=== PATIENT | female | born 1985 | race Caucasian/White ===

== ENCOUNTER 2017-11-22 15:04 | Emergency (ER) | payer OTHER ==
[~2017-11-22] VITALS: Ht 157.4 cm; Wt 81.6 kg
[~2017-11-22 15:04] MED LIST changes: -AMITRIPTYLINE50 MG PO; -BACLOFEN5 MG PO; -COZAAR100 MG PO; -DAYPRO600 M1 PO; -MIRALAX POWDER17 G1 PO; -NORCO 5-325 TA1 EACH PO; -PHENERGAN25 M3 PO; -PROBIOTIC1 EAC4 PO; -Percocet 325 MG1 TAB PO; -STOOL SOFTENER100 M3 PO; -VESICARE10 MG PO
[2017-11-22 15:09] VITALS: BP 145/85
[2017-11-22 15:57] LABS: BASO # 0.1 10*3/uL (0.0-0.1); EOS # 0.2 10*3/uL (0.0-0.4); EOS % 1.9 % (1.0-4.0); HEMATOCRIT 37.3 % (37.0-47.0); HEMOGLOBIN 12.5 g/dl (12.0-16.0); LYMPH # 2.5 10*3/uL (1.3-4.4); LYMPH % 27.7 % (27.0-41.0); MEAN CELL VOLUME 90.3 fl (81.0-99.0); MEAN CORPUSCULAR HGB 30.3 pg (27.0-31.0); MEAN CORPUSCULAR HGB CONC 33.5 g/dl (33.0-37.0); MEAN PLATELET VOLUME 9.9 fl (9.6-12.3); MONO # 0.9 10*3/uL (0.1-1.0); NEUT # 5.4 10*3/uL (2.3-7.9); PLATELET COUNT AUTOMATED 389 10*3/uL (130-400); RED BLOOD COUNT 4.13 10*6/uL (4.10-5.10); RED CELL DISTRI WIDTH 12.4 % (0-14.5); WHITE BLOOD COUNT 9.1 10*3/uL (4.8-10.8)
[2017-11-22 16:04] LABS: CLARITY CLEAR (CLEAR); COLOR YELLOW (YELLOW)
[2017-11-22 16:05] LABS: BILIRUBIN NEGATIVE (NEGATIVE); BLOOD NEGATIVE (NEGATIVE); GLUCOSE NEGATIVE (NEGATIVE); KETONE NEGATIVE (NEGATIVE); LEUKO ESTERASE NEGATIVE (NEGATIVE); NITRITE NEGATIVE (NEGATIVE); SPECIFIC GRAVITY 1.005 (1.005-1.030); UROBILINOGEN 0.2 E.U./dl (0.2-1.0)
[2017-11-22 16:13] LABS: BACTERIA TRACE; RBC 0-2 rbc/hpf (0-2); WBC 0-2 wbc/hpf (0-5)
[2017-11-22 16:16] LABS: ALBUMIN 4.3 gm/dl (3.1-4.5); ALKALINE PHOSPHATASE 39 U/L (45-117); BUN 9 mg/dl (7-24); CHLORIDE 105 mmol/L (98-107); CREATININE 0.86 mg/dL (0.55-1.02); POTASSIUM 3.5 mmol/L (3.5-5.1); SGOT/AST 19 IU/L (3-35); SGPT/ALT 31 U/L (12-78); SODIUM 139 mmol/L (136-145); TOTAL PROTEIN 7.3 gm/dL (6.4-8.2)
[2017-11-22] MEDS ORDERED: PHENERGAN25 M3 PO (18:04)
[2017-11-22] MEDS ORDERED: Percocet 325 MG1 TAB PO (18:04)
[2017-11-22] MEDS ORDERED: MIRALAX POWDER17 G1 PO (18:05)
[2017-12-10] MEDS ORDERED: BACLOFEN5 MG PO (08:57)
[2017-12-10] MEDS ORDERED: VESICARE10 MG PO (08:58)
[2017-12-10] MEDS ORDERED: DAYPRO600 M1 PO (08:58)
[2017-12-10] MEDS ORDERED: COZAAR100 MG PO (08:58)
[2017-12-10] MEDS ORDERED: AMITRIPTYLINE50 MG PO (08:59)
[2017-12-10] MEDS ORDERED: STOOL SOFTENER100 M3 PO (08:59)
[2017-12-10] MEDS ORDERED: PROBIOTIC1 EAC4 PO (08:59)
[2017-12-12] MEDS ORDERED: NORCO 5-325 TA1 EACH PO (11:46)
== END 2017-11-22 18:19 | disposition home or self-care (01) ==
LOC: ED 15:04
PROVIDERS: Physician Assistant
DX: K59.00 Constipation, unspecified (principal); R10.31 Right lower quadrant pain; F17.200 Nicotine dependence, unspecified, uncomplicated; Z98.890 Other specified postprocedural states; Z79.899 Other long term (current) drug therapy; Z88.1 Allergy status to other antibiotic agents; Z88.5 Allergy status to narcotic agent; Z90.710 Acquired absence of both cervix and uterus

== ENCOUNTER → 2017-11-22 | Outpatient (CLI) | payer OTHER ==
[~2017-11-22] MED LIST: ALLERGY RELIEF10 M1 PO; AMITRIPTYLINE50 MG PO; BACLOFEN5 MG PO; BALZIVA 35 MCG-1 TAB PO; CEFTIN500 MG PO; CLARITIN10 MG PO; COMPAZINE10 MG PO; COZAAR100 MG PO; DAYPRO600 M1 PO; ELMIRON100 MG PO; MIRALAX POWDER17 G1 PO; MOBIC7.5 MG PO; MOTRIN800 MG PO; MULTIPLE VITAMI1 TAB PO; NORCO 5-325 TA1 EACH PO; PHENERGAN25 M3 PO; PHENERGAN25 MG RC; PRILOSEC40 MG PO; PROBIOTIC1 EAC4 PO; Percocet 325 MG1 TAB PO; STOOL SOFTENER100 M3 PO; VESICARE10 MG PO; VICO75300 PO; VICODIN 500 MG-1 TAB PO; VITAMIN B121000 MCG PO; ZANTAC150 MG PO; ZITHROMAX Z PA250 MG PO
== END | disposition home or self-care (01) ==
LOC: US 10:38
DX: N83.9 Noninflammatory disorder of ovary, fallopian tube and broad ligament, unspecified (principal); Z90.710 Acquired absence of both cervix and uterus

== ENCOUNTER → 2017-12-12 | Day surgery (SDC) | payer OTHER ==
[2017-12-10 09:14] VITALS: BP 140/90
[~2017-12-12] VITALS: Ht 157.4 cm; Wt 77.1 kg
[~2017-12-12] MED LIST changes: +AMITRIPTYLINE50 MG PO; +BACLOFEN5 MG PO; +COZAAR100 MG PO; +DAYPRO600 M1 PO; +MIRALAX POWDER17 G1 PO; +NORCO 5-325 TA1 EACH PO; +PHENERGAN25 M3 PO; +PROBIOTIC1 EAC4 PO; +Percocet 325 MG1 TAB PO; +STOOL SOFTENER100 M3 PO; +VESICARE10 MG PO
[2017-12-12 08:30] VITALS: BP 130/93
[2017-12-12 11:15] VITALS: BP 118/48
[2017-12-12 11:30] VITALS: BP 114/59
[2017-12-12 11:45] VITALS: BP 116/58
[2017-12-12 12:00] VITALS: BP 116/58
[2017-12-12 12:15] VITALS: BP 112/66
== END | disposition home or self-care (01) ==
LOC: SDC 12-07 10:15
DX: D27.0 Benign neoplasm of right ovary (principal); N83.511 Torsion of right ovary and ovarian pedicle; I10 Essential (primary) hypertension; K21.9 Gastro-esophageal reflux disease without esophagitis; J45.909 Unspecified asthma, uncomplicated; K92.89 Other specified diseases of the digestive system; F17.210 Nicotine dependence, cigarettes, uncomplicated; F32.9 Major depressive disorder, single episode, unspecified; E66.09 Other obesity due to excess calories; Z98.890 Other specified postprocedural states; Z90.721 Acquired absence of ovaries, unilateral; Z90.49 Acquired absence of other specified parts of digestive tract; Z98.51 Tubal ligation status; Z88.8 Allergy status to other drugs, medicaments and biological substances; Z79.899 Other long term (current) drug therapy; Z83.3 Family history of diabetes mellitus; Z68.31 Body mass index [BMI] 31.0-31.9, adult

== ENCOUNTER 2024-02-03 15:10 | Emergency (ER) | payer BC ==
[~2024-02-03] VITALS: Ht 157.4 cm; Wt 77.1 kg
[2024-02-03 15:57] VITALS: BP 130/99
[2024-02-03] MEDS ORDERED: OZEMPIC1 MG/0.71 SQ (15:59)
[2024-02-03] MEDS ORDERED: Acetaminophen/Hydrocodone HP 10/325 PO ONE (16:20)
[2024-02-03] MEDS ORDERED: Ondansetron Hydrochloride 4 MG TAB SL ONE (16:20)
[2024-02-03] MEDS ORDERED: Acetaminophen/Hydrocodone Bi 3 TAB PACK PO PRN (18:10)
== END 2024-02-03 18:21 | disposition home or self-care (01) ==
LOC: ED 15:10
DX: M54.50 Low back pain, unspecified (principal); M25.551 Pain in right hip; M25.552 Pain in left hip; K21.9 Gastro-esophageal reflux disease without esophagitis; F32.A Depression, unspecified; I10 Essential (primary) hypertension; Z88.1 Allergy status to other antibiotic agents; Z91.048 Other nonmedicinal substance allergy status; Z90.49 Acquired absence of other specified parts of digestive tract; Z90.710 Acquired absence of both cervix and uterus; Z98.890 Other specified postprocedural states; W10.8XXA Fall (on) (from) other stairs and steps, initial encounter